=== PATIENT | male | born 1955 | race Caucasian/White ===

== ENCOUNTER 2017-01-12 18:08 | Observation (INO) | payer OTHER ==
[~2017-01-12] VITALS: Ht 172.7 cm; Wt 81.6 kg
[~2017-01-12 18:08] MED LIST: AMOX-CLAV 875-1 EACH PO; CYMBALTA30 M1 PO; FOLIC ACID1 M1 PO; GABAPENTIN300 M2 PO; HYSINGLA ER40 MG PO; K-TAB ER10 MEQ PO; MULTIVITAMINS1 EAC8 PO; NYSTATIN15 G1 TOP; OMEPRAZOLE40 M1 PO; ONE DAILY MULT1 EAC2 PO; OPANA ER40 M1 PO; OXYMORPHONE HCL40 MG PO; PERCOCET 10-321 EACH PO; PERCOCET 5-3251 EACH PO; PREDNISONE10 M2 PO; THIAMINE HCL50 M1 PO; VITAMIN B-1100 MG PO
--- NOTE | 2017-01-12 18:19 | ED CARDIAC/CP/PALPITATIONS ---
History of Present Illness General Chief Complaint: Chest Pain Stated Complaint: BIBA FOR CP, ABD PAIN Source: patient, old records, EMS Exam Limitations: no limitations Vital Signs & Intake/Output Vital Signs & Intake/Output Vital Signs Date Time Temp Pulse Resp B/P Pulse O2 O2 Flow FiO2 Ox Delivery Rate 01/13 0400 98.9 84 20 144/80 01/13 0028 99.0 74 20 147/80 93 Room Air 01/13 0000 99.0 74 20 148/80 01/12 2225 98.0 85 18 146/87 95 Room Air 01/12 2039 97.3 93 18 134/76 95 Room Air 01/12 1900 Room Air 01/12 1822 100 20 133/80 95 Room Air Allergies Coded Allergies: No Known Allergies (02/12/16) Reconcile Medications Duloxetine Hydrochloride (Cymbalta) 30 MG CAPSULE.DR 60 MG PO DAILY DEPRESSION Gabapentin (Neurontin) 800 MG TABLET 1 TAB PO TID NERVE PAIN (Reported) Ibuprofen (Advil) 200 MG CAPSULE 2 CAP PO DAILY PAIN (Reported) Oxycodone HCl 10 MG TABLET 1 TAB PO Q4-6H PAIN (Reported) Oxymorphone HCl (Oxymorphone HCl ER) 40 MG TAB.ER.12H 2 TAB PO BID PAIN ( Reported) Oxymorphone HCl (Opana) 10 MG TABLET 1 TAB PO Q4-6H PAIN (Reported) Triage Nurses Notes Reviewed? yes Onset: Abrupt Duration: day(s): (1), constant Timing: recent history Quality/Severity: moderate, severe, aching, pressure Location: central, epigastric Radiation: substernal, epigastric Activities at Onset: sleep Nitro Today/Relief: 0.4 mg x 3 (WITH RELIEF) Aspirin Today: 325 mg x 1, provided by EMS Associated Symptoms: nausea/vomiting HPI: 61 Year old male with history of etoh abuse, obesity, former tobacco use, hypertension, possible diabetes mellitus, possible left lower extremity deep venous thrombosis, chronic pain syndrome, alcoholism, anxiety, depression, left AKA presents to the emergency room for evaluation complaining of substernal chest pain radiating to the epigastric and right upper and left upper quadrant since 6:30 this morning came on while at sleep associated nausea and 3 episodes of vomiting. The patient denies diarrhea. The pain is otherwise nonradiating no back pain shortness of breath pain with inspiration no cough or hemoptysis. He should states that he drinks a quart of 5 Every day his last treatment was at 3 AM. He denies any fevers chills. Patient is in chronic pain secondary to back fractures and a left above-knee amputation for which she is on oxymorphone 40 mg. The patient was given 3 sublingual nitros in route with improvement in his pain from a 10 down to a 6 currently. He states he ran out of his pain medication at 6:00 this morning and is not due for refill again until Sunday. The patient is not regularly seen by field radio technician. (OSITO DAVISON) Past History Travel History Traveled to [place] past 21 day No Medical History Any Pertinent Medical History? 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 No (OSITO DAVISON) Review of Systems Review of Systems Constitutional: Reports: see HPI. All Other Systems: Reviewed and Negative Comments Review of systems: See HPI, All other systems negative. Constitutional, no chills no fever, no malaise no weight loss HEENT: No visual changes no sore throat no congestion, no ear pain Cardiovascular: chest pain , no palpitation , no orthopnea no ankle swelling Skin, no jaundice no rashes, no change in skin Respiratory: No dyspnea no cough no sputum no hemoptysis GI: nausea vomiting, no diarrhea, no bloating/constipation : No dysuria No hematuria Muscle skeletal: No joint pain, no back pain, no neck pain, Neurologic: No numbness no confusion, no headache Psych: No stress Heme/endocrine: No bruising no bleeding Immunology: No lymphadenopathy, (OSITO DAVISON) Physical Exam Physical Exam General Appearance: well developed/nourished, alert, awake Cardiovascular: regular rate/rhythm Comments: Well-developed well-nourished person in no acute distress HEENT: Normal EENT exam; PERRL, EOMI, HEAD is atraumatic. moist mucous membranes. Neck: Supple, normal range of motion Back: Nontender, no CVA tenderness. Full range of motion Cardiovascular: Regular rate and rhythms no murmurs rubs or gallops, normal JVP Respiratory: Chest nontender.There were no bony deformities, no asymmetry. No respiratory distress. Patient speaking in full complete sentences. Breath sounds clear to auscultation bilaterally: NO W/R/R Abdomen: Soft, nontender nondistended, no appreciable organomegaly. Normal bowel sounds. No rebound/guarding Extremity: No edema, full range of motion of extremities, Neuro: Alert oriented x3, motor sensory normal. There were no obvious focal neurologic abnormalities. Skin: No appreciable rash on exposed skin, skin is warm and dry. Psych: Mood and affect is normal, memory and judgment is normal. Core Measures ACS in differential dx? Yes ASA ordered for poss ACS? PT GIVEN EN ROUTE Severe Sepsis Present: No Septic Shock Present: No (BELEN LARA,OSITO) Progress Differential Diagnosis: AMI, aortic dissection, atrial fibrillation, CHF/pulm edema, costochondritis, hypovolemia, musculoskeletal pain, myocarditis, pancreatitis, pericarditis, pneumonia, pneumothorax, pulmonary embolism, unstable angina, V-fib/V-Tach Plan of Care: Orders Procedure Date/time Status Heart Healthy Diet 01/13 B Active TROPONIN LEVEL 01/13 0600 Active EKG 01/13 0600 Active Vital Signs 01/13 221 Active Teach/Educate 01/13 221 Active Pain Treatment and Response 01/13 221 Active Nutritional Intake, Monitor 01/13 221 Active Isolation 01/13 221 Active Intake & Output 01/13 221 Active Patient Care Conference 01/13 221 Active Activity/Ambulation 01/13 221 Active TROPONIN LEVEL 01/12 2355 Complete EKG 01/12 2355 Active Pathway - chart 01/12 2321 Active Pathway - chart 01/[address] in observation 01/12 2147 Active Misc Message 01/12 2147 Active ED Holding Orders 01/12 2147 Active Vital Signs 01/12 2147 Active Code Status 01/12 2147 Active Patient Data 01/12 2107 Active Intake & Output 01/12 1852 Active Add-on Test (ER Only) 01/12 183 Active URINE DRUG SCREEN FOR ER ONLY 01/12 183 Complete ETHANOL 01/12 1835 Complete Telemetry/Budget Accountant 01/12 1829 Active TROPONIN LEVEL 01/12 182 Complete PROTHROMBIN TIME 01/12 182 Complete LIPASE 01/12 182 Complete COMPREHENSIVE METABOLIC PANEL 01/12 1829 Complete CBC WITHOUT DIFFERENTIAL 01/12 1829 Complete AMYLASE 01/12 1829 Complete EKG 01/12 1811 Active House Staff 01/12 UNK Active VTE Mechanical Prophylaxis 01/12 UNK Active CIWA 01/12 UNK Active Current Medications Sig/Kyle Start time Last Medication Dose Stop Time Status Admin Duloxetine HCl 60 MG DAILY 01/13 1000 AC (Cymbalta) Enoxaparin Sodium 40 MG DAILY 01/13 1000 UNVr (Lovenox) Folic Acid 1 MG DAILY 01/13 1000 AC (Folic Acid) 01/15 1001 Multivitamins 1 TAB DAILY 01/13 1000 AC (Theragran Vitamins) Lorazepam 1 MG Q2P PRN 01/12 2330 AC (Ativan) Non-Formulary 0 SEE ADMIN CRITERIA 01/12 233 CAN Medication (NON FORMULARY) Non-Formulary 0 SEE ADMIN CRITERIA 01/12 2330 CAN Medication (NON FORMULARY) Oxycodone HCl 10 MG Q4-6 PRN 01/12 2315 AC (Roxicodone) Laboratory Tests 01/12/17 2352: Troponin I < 0.01 01/12/17 2030: Urine Opiates Screen > 4000.00 H, Methadone Screen 55, Barbiturate Screen < 60, Ur Phencyclidine Scrn < 6.00, Amphetamines Screen < 100, U Benzodiazepines Scrn < 85, Urine Cocaine Screen < 50, Urine Cannabis Screen < 5.00 01/12/17 183: Anion Gap 8, Estimated GFR > 60, BUN/Creatinine Ratio 11.4, Glucose 94, Calcium 8.7, Total Bilirubin 0.9, AST 16 L, ALT 28, Alkaline Phosphatase 84, Troponin I < 0.01, Total Protein 6.3, Albumin 3.5, Globulin 2.8, Albumin/Globulin Ratio 1.3 , Amylase < 30 L, Lipase 27, PT 12.2, INR 1.16, CBC w Diff NO MAN DIFF REQ, RBC 3.36 L, MCV 97.9 H, MCH 32.7 H, RDW 15.5 H, MPV 8.3, Gran % 70.8, Lymphocytes % 19.3 L, Monocytes % 6.5, Eosinophils % 3.1, Basophils % 0.3, Absolute Granulocytes 3.8, Absolute Lymphocytes 1.0 L, Absolute Monocytes 0.3, Absolute Eosinophils 0.2, Absolute Basophils 0, PUBS MCHC 33.4, Serum Alcohol < 10.0 Labs ordered old records reviewed patient medicated Dilaudid 1 mg IV IV fluids. Patient denies nausea chest x-ray CAT scan ordered case discussed with Dr. Earl 01/12/2017 7:59:25 PM discussed with the patient at length all of his lab results today pending CAT scan 01/12/2017 9:26:45 PM discussed the patient is CAT scan findings remainder of lab work given history premature discharge I believe would BE medically harmful patient, pain improved at this time Case discussed with Dr. Lopez will place in telemetry OBS CHEST pain (BELEN LARA,OSITO) Diagnostic Imaging: Viewed by Me: Radiology Read, CT Scan. Discussed w/RAD: Radiology Read, CT Scan. Radiology Impression: PATIENT: SOLEDAD WEBER PRESENT AGE: 11 PATIENT ACCOUNT NO: [id number] : [birth year] LOCATION: [facility] ORDERING PHYSICIAN: OSITO LARA SERVICE DATE: 01/12/17 EXAM TYPE: RAD - XRY-WRIST COMPLETE-RIGHT EXAMINATION: WRIST 4 VIEWS, RIGHT CLINICAL INFORMATION: Right wrist pain. COMPARISON: None. TECHNIQUE: AP, lateral, oblique , scaphoid views of the right wrist are provided. FINDINGS: There are no fractures or dislocations. There is no displacement of the pronator fat pad. The proximal carpal row is intact. IMPRESSION: Unremarkable right wrist radiographs. DICTATED BY: LIZZY OQUENDO MD DATE/TIME DICTATED:01/12/171907 PERMIT SPECIALIST:JUSTYN DATE/TIME TRANSCRIBED:01/12/171907 CONFIDENTIAL, DO NOT COPY WITHOUT APPROPRIATE AUTHORIZATION. <Electronically signed in Other Vendor System> SIGNED BY: LIZZY OQUENDO MD 01/12/171910, PATIENT: ALPA STALEY PRESENT AGE: 61 PATIENT ACCOUNT NO: [id number] : 54 LOCATION: ER ORDERING PHYSICIAN: OSITO LARA SERVICE DATE : 01/12/17 EXAM TYPE: CAT - CT ABD & PELVIS W IV CONTRAST EXAMINATION: CT ABDOMEN AND PELVIS WITH CONTRAST CLINICAL INFORMATION: Epigastric pain. COMPARISON: None. TECHNIQUE: Contiguous axial thin section helical images of the abdomen and pelvis were performed following the administration of 93 mL of intravenous Optiray 320. The data set was reformatted in the coronal and sagittal planes and reviewed on an independent workstation. DLP: 317 mGy-cm. FINDINGS: There is dependent bibasilar atelectasis. The visualized lung bases are otherwise clear. The visualized portions of the heart are unremarkable. The liver is of normal size and attenuation without concerning focal lesions. There is an 8 mm cyst within the inferior right lobe. There is mild intrahepatic biliary ductal dilation. The patient is status post cholecystectomy. The common duct is prominent measuring approximately 11 mm. The spleen, pancreas, adrenal glands are unremarkable. Both kidneys are of normal size and attenuation without hydronephrosis or nephrolithiasis. Following the administration of IV contrast, prompt symmetric nephrograms are displayed. There is no abdominal free fluid. There is neither mesenteric nor retroperitoneal lymphadenopathy. Normal unopacified loops of small and large bowel are identified. A normal appendix is identified. There is no pelvic free fluid. The urinary bladder is partially filled. There is mild diffuse bladder wall thickening. There is neither pelvic nor inguinal lymphadenopathy. Bone windows: Neither sclerotic nor lytic bone lesions are identified. IMPRESSION: Mild diffuse bladder wall thickening. This could be secondary to only partial filling of the urinary bladder, but correlate with physical exam, patient history and urinalysis if deemed clinically appropriate. Mild intrahepatic biliary ductal dilation status post cholecystectomy. DICTATED BY: LIZZY OQUENDO MD DATE/TIME DICTATED:01/12/171949 PERMIT SPECIALIST:JUSTYN DATE/TIME TRANSCRIBED:01/12/171949 CONFIDENTIAL, DO NOT COPY WITHOUT APPROPRIATE AUTHORIZATION. <Electronically signed in Other Vendor System> SIGNED BY: LIZZY OQUENDO MD 01/12/172001 Initial ED EKG: normal intervals, normal p-waves, normal QRS complex, normal sinus rhythm (70), nonspecific ST T wave chg Prior EKG: unchanged (2015) Rhythm Strip: normal sinus rhythm (BELEN LARA,OSITO) Departure Departure Time of Disposition: 2032 Disposition: STILL A PATIENT Condition: Stable Clinical Impression Primary Impression: Chest pain Referrals: CEE MOTT MD (PCP/Family) Departure Forms: Customer Survey General Discharge Information Observation Note Spoke With: CHANCE MARTINS,LEYDA Cerna Patient In: Non-ED OBS Care Area Rationale for Observation: My rational for observation is as follows pain improved with nitroglycerin aspirin patient has multiple cardiac risk factors premature discharge would BE medically harmful poor outpatient compliance (OSITO DAVISON) PA/CONCRETE CRAFTSMAN Co-Sign Statement Statement: ED Attending supervision documentation- [X] I saw and evaluated the patient. I have also reviewed all the pertinent lab results and diagnostic results. I agree with the findings and the plan of care as documented in the PA's/CONCRETE CRAFTSMAN's documentation. [] I have reviewed the ED Record and agree with the PA's/CONCRETE CRAFTSMAN's documentation. [] Additions or exceptions (if any) to the PAs/CONCRETE CRAFTSMAN's note and plan are summarized below: [] (PUNEET MARTINS,BRITTNEY Frost) Critical Care Note Critical Care Note Critical Care Time: non-applicable (OSITO DAVISON)
--- NOTE | 2017-01-12 18:20 | NUR ---
BIBA FOR INTERMITTENT CHEST PAIN SINCE THIS MORNING. WAS GIVEN 3 NTG BY EMS WITH RELIEF. UPON ARRIVAL PT STATES HE HAS RECURRENT CHEST PAIN 6 OUT OF 10. PT AWAKE, ALERT, ANXIOUS. PT ADMITS TO NARCOTIC DEPENDENCE. ARRIVED WITH 4 EMPTY BOTTLES OF OXYMORPHONE AND OXYCONE THAT WERE FILLED ABOUT 2 WEEKS AGO. PT STATES HE RAN OUT OF NARCOTICS AND TOOK LAST PILL AT 0630 TODAY. NOT DUE FOR REFILS UNTIL SUNDAY. SKIN WARM AND DRY.
--- NOTE | 2017-01-12 18:45 | NUR ---
PT RECIEVED TO ROOM 11. SEEN BY OSITO SORTO. ARRIVED WITH IV IN PLACE. PLACED ON MONITOR IN SINUS RHYTHM. EKG DONE. LABS DRAWN.
--- NOTE | 2017-01-12 18:51 | NUR ---
PT ON CELL PHONE
[2017-01-12 18:53] LABS: ABSOLUTE BASOPHIL COUNT 0 /CUMM (0.0-0.2); ABSOLUTE EOSINOPHIL COUNT 0.2 /CUMM (0.0-0.7); ABSOLUTE GRANULOCYTE CT 3.8 /CUMM (1.4-6.5); ABSOLUTE MONOCYTE COUNT 0.3 /CUMM (0.10-0.60); BASOPHIL % 0.3 % (0.0-2.0); EOSINOPHIL % 3.1 % (0-5); HEMATOCRIT 32.9 % (42-52); MEAN CORPUSCULAR HGB 32.7 PG (27.0-31.0); MEAN CORPUSCULAR HGB CONC 33.4 G/DL (33.0-37.0); MEAN CORPUSCULAR VOLUME 97.9 FL (80.0-94.0); MEAN PLATELET VOLUME 8.3 FL (7.4-10.4); PLATELET COUNT 238 /CUMM (130-400); RBC DISTRIBUTION WIDTH 15.5 % (11.5-14.5); RED BLOOD CELL CT 3.36 /CUMM (4.70-6.10); WHITE BLOOD CELL COUNT 5.3 /CUMM (4.8-10.8)
[2017-01-12 18:57] LABS: GRANULOCYTE % 70.8 % (42.2-75.2)
[2017-01-12 18:59] LABS: PT 12.2 SEC (9.4-12.5)
[2017-01-12] MEDS ORDERED: NEURONTIN300 M1 PO (19:00)
[2017-01-12] MEDS ORDERED: OPANA10 M1 PO (19:01)
[2017-01-12] MEDS ORDERED: OXYCODONE HCL10 M2 PO (19:01)
[2017-01-12] MEDS ORDERED: NEURONTIN800 M2 PO (19:02)
[2017-01-12] MEDS ORDERED: ADVIL200 M1 PO (19:03)
--- NOTE | 2017-01-12 19:08 | NUR ---
PT MEDICATED WITH DIALUDID PER ORDER AT THIS TIME.
--- NOTE | 2017-01-12 19:12 | RADIOLOGY REPORT ---
EXAMINATION: CHEST 1 VIEW CLINICAL INFORMATION: Chest pain. COMPARISON: 06/21/2016. TECHNIQUE: An AP view of the chest is provided. FINDINGS: The cardiac silhouette is not enlarged. The mediastinal and hilar contours are unremarkable. There are neither pleural effusions nor pneumothoraces. There are no consolidations. The osseous structures are unremarkable. IMPRESSION: No evidence for acute disease.
--- NOTE | 2017-01-12 19:30 | NUR ---
PT OPENLY DISCUSSING NARCOTIC DEPENDENCE/ADDICTION. STATES HE BOUGHT HEROIN TO USE FOR WHEN HE RUNS OUT OF MEDS BUT HAS NOT USED ANY TODAY. PT STATES HIS PAIN IS IMPROVED, ALMOST GONE AFTER DILAUDID
--- NOTE | 2017-01-12 20:02 | CT SCAN REPORT ---
EXAMINATION: CT ABDOMEN AND PELVIS WITH CONTRAST CLINICAL INFORMATION: Epigastric pain. COMPARISON: None. TECHNIQUE: Contiguous axial thin section helical images of the abdomen and pelvis were performed following the administration of 93 mL of intravenous Optiray 320. The data set was reformatted in the coronal and sagittal planes and reviewed on an independent workstation. DLP: 317 mGy-cm. FINDINGS: There is dependent bibasilar atelectasis. The visualized lung bases are otherwise clear. The visualized portions of the heart are unremarkable. The liver is of normal size and attenuation without concerning focal lesions. There is an 8 mm cyst within the inferior right lobe. There is mild intrahepatic biliary ductal dilation. The patient is status post cholecystectomy. The common duct is prominent measuring approximately 11 mm. The spleen, pancreas, adrenal glands are unremarkable. Both kidneys are of normal size and attenuation without hydronephrosis or nephrolithiasis. Following the administration of IV contrast, prompt symmetric nephrograms are displayed. There is no abdominal free fluid. There is neither mesenteric nor retroperitoneal lymphadenopathy. Normal unopacified loops of small and large bowel are identified. A normal appendix is identified. There is no pelvic free fluid. The urinary bladder is partially filled. There is mild diffuse bladder wall thickening. There is neither pelvic nor inguinal lymphadenopathy. Bone windows: Neither sclerotic nor lytic bone lesions are identified. IMPRESSION: Mild diffuse bladder wall thickening. This could be secondary to only partial filling of the urinary bladder, but correlate with physical exam, patient history and urinalysis if deemed clinically appropriate. Mild intrahepatic biliary ductal dilation status post cholecystectomy.
--- NOTE | 2017-01-12 20:17 | NUR ---
PT SLEEPING. IN NO OVERT DISTRESS
--- NOTE | 2017-01-12 20:39 | NUR ---
PT AWAKE, COMPLAINING OF LEFT THIGH GROIN PAIN. NOT SURE OF ONSET BUT STATES HE THINKS IT STARTED TODAY AND IT IS "SEVERE". PT VOIDED IN URINAL. URINE TRIO SENT
--- NOTE | 2017-01-12 22:02 | History & Physical ---
CAMPOS MARTINS,[facility] 01/12/17 2202: General Information and HPI MD Statement: I have seen and personally examined ALPA STALEY and documented this H&P. The patient is a 61 year old M who presented with a patient stated chief complaint of [chest pain, epigastric and LUQ pain]. 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 Patient reports that the pain was at first substernal pressure-like and radiating to the arms and shoulders as well as the epigastric area and right upper quadrant. Pain was 10 out of 10 and was alleviated after taking oxymorphone. Patient also took sublingual nitroglycerin which is slightly helped with the pain as well. Reports accompanying palpitations, shortness of breath and dizziness with the chest pain. Also reports cold sweats and chills. He vomited 4-5 times which contained food at the beginning and medications contained bile in the last vomit. Patient denied pain radiating to the back , currently reports no chest pain, reports abdominal pain in the epigastric and right upper quadrant, no diarrhea but reports loose stools, non bloody. patient takes a quart of alcohol daily, last time took it at 2AM. Denies any history of seizures with alcohol withdrawal. He was last admitted to [facility] on 06/21/16 and was on telemetry for chest pain and was also treated for alcohol withdrawal at that time. Patient has a chronic pain in left knee (despite AKA). Patient reports that 40 years ago he had an infection in the meniscus of left knee needing knee replacement which got complicated several times and finally resulted in amputation. He still feels pain in the left leg, also has chronic pain on hips and shoulders and takes oxycontin and oxymorphone. 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 child Services at Home: None ETOH Use: heavy use, alcoholic, a quort of alcohol daily Illicit Drug Use: denies illicit drug use Functional Ability ADLs Independent: dressing, eating, toileting, bathing. Ambulation: Wheelchair and crutches Review of Systems Review of Systems Constitutional: Reports: chills. Denies: fever, weakness. EENTM: Denies: visual changes. Cardiovascular: Reports: chest pain, palpitations. Denies: peripheral edema, syncope (currently no CP or palpitation). Respiratory: Reports: short of breath (currently no SOB). Denies: cough, stridor, wheezing. GI: Reports: abdominal pain, diarrhea, nausea, changes in stool, vomiting. Denies: bloating, constipation, distention, melena, bloody stool, steatorrhea. Genitourinary: Reports: nocturia (1-2 times/night, no increase). Denies: discharge. Musculoskeletal: Reports: joint pain. Denies: back pain. Skin: Reports: no symptoms. Neurological/Psychological: Reports: no symptoms. Hematologic/Endocrine: Reports: no symptoms. Exam & Diagnostic Data Last 24 Hrs of Vital Signs/I&O Vital Signs Date Time Temp Pulse Resp B/P Pulse O2 O2 Flow FiO2 Ox Delivery Rate 01/13 0028 99.0 74 20 147/80 93 Room Air 01/13 0000 99.0 74 20 148/80 01/125 98.0 85 18 146/87 95 Room Air 01/12 2039 97.3 93 18 134/76 95 Room Air 01/12 1900 Room Air 01/12 1822 100 20 133/80 95 Room Air Physical Exam General Appearance Alert, Oriented X3, Cooperative, No Acute Distress Skin No Significant Lesion HEENT Atraumatic, EOMI, Mucous Membr. moist/pink Neck Supple, No JVD Cardiovascular Regular Rate, Normal S1, Normal S2, No Murmurs Lungs Clear to Auscultation, Normal Air Movement Abdomen Soft, Generalized tenderness more prominent in the epigastric area and below the ribs, morphy sign (-), no abdominal bruit Neurological Normal Speech, Normal Tone, Cranial Nerves 3-12 NL Extremities No Edema, Normal Pulses, AKA on left side Vascular Normal Pulses Last 24 Hrs of Labs/Yuan: Laboratory Tests 01/12/17 2352: Troponin I < 0.01 01/12/17 2030: Urine Opiates Screen > 4000.00 H, Methadone Screen 55, Barbiturate Screen < 60, Ur Phencyclidine Scrn < 6.00, Amphetamines Screen < 100, U Benzodiazepines Scrn < 85, Urine Cocaine Screen < 50, Urine Cannabis Screen < 5.00 01/12/17 1835: Anion Gap 8, Estimated GFR > 60, BUN/Creatinine Ratio 11.4, Glucose 94, Calcium 8.7, Total Bilirubin 0.9, AST 16 L, ALT 28, Alkaline Phosphatase 84, Troponin I < 0.01, Total Protein 6.3, Albumin 3.5, Globulin 2.8, Albumin/Globulin Ratio 1.3 , Amylase < 30 L, Lipase 27, PT 12.2, INR 1.16, CBC w Diff NO MAN DIFF REQ, RBC 3.36 L, MCV 97.9 H, MCH 32.7 H, RDW 15.5 H, MPV 8.3, Gran % 70.8, Lymphocytes % 19.3 L, Monocytes % 6.5, Eosinophils % 3.1, Basophils % 0.3, Absolute Granulocytes 3.8, Absolute Lymphocytes 1.0 L, Absolute Monocytes 0.3, Absolute Eosinophils 0.2, Absolute Basophils 0, PUBS MCHC 33.4, Serum Alcohol < 10.0 Assessment/Plan Assessment: Patient is a 61-year-old gentleman with past medical history of osteoarthritis and chronic pain syndrome, AKA of the left knee, alcoholism, history of alcohol withdrawal, anxiety and depression who came to the ED with an episode of substernal pressure-like chest pain that radiated at first to the shoulders but later on to the epigastric and RUQ. Patient was last admitted at [facility] in June 2016 with chest pain and alcohol withdrawal. Workup in the ED revealed negative troponin and EKG with no ST or T changes and no arrhythmias. He will be abserved on Telemetry floor for minitoring. Problem list and plan: Chest pain, abdominal pain Pain alleviated with oxymorphone, slightly improved with nitroglycerin. Troponin EKG unremarkable. There is no elevated liver enzymes. Amylase and lipase within normal limits. * Serial troponin EKG * Vital signs every shift * Cardiology consulted, Dr. Lopez will see the patient in a.m. Alcoholism Patient has a history of alcohol withdrawal, no history of seizures with withdrawal. * [facility] protocol * Ativan per [facility] Chronic pain syndrome, osteoarthritis On gabapentin, OxyContin and oxymorphone at home Urine toxicology shows elevated opiates * Continue gabapentin 100 mg 3 times a day * Hydromorphone 1 mg every 4 when necessary by mouth * Continue home medications for vitamin B-1, folic acid and multivitamins Anxiety and depression * Continue Cymbalta 60 g daily Diet * Heart healthy DVT prophylaxis * Lovenox Full code As Ranked By This Provider Problem List: 1. Chest pain 2. Anxiety 3. Depression 4. Alcoholism /alcohol abuse Core Measures/Miscellaneous Acute Coronary Syndrome ACS Diagnosis: No Cerebrovascular Accident CVA/TIA Diagnosis: No Congestive Heart Failure CHF Diagnosis: No Venous Thromboembolism VTE Risk Factors: Acute medical illness, Age > 40 No [facility] VTE prophylaxis d/t: No contraindications No VTE Pharm Prophylaxis d/t: No contraindications VTE Diagnosis: No VTE Type: NONE VTE Confirmed by (Test): NONE Severe Sepsis Severe Sepsis Present: No Septic Shock Septic Shock Present: No Miscellaneous Documentation Attending Case Discussed With: CHANCE MARTINS,LEYDA Hooper Primary Care Physician: CEE MOTT MD Patient sees these Specialists none Level of Patient Care: Telemetry OSITO ANDERSON 01/12/17 2212: Resident Review Statement Resident Statement: examined this patient, discussed with intern product marketing manager, agreed with intern product marketing manager Other Findings: This is a 61-year-old male with past medical history of hypertension, chronic pain, chronic alcoholism, left [id number] amputation and questionable diabetes who presented to the [facility] ED complaining of chest pain. The patient's chest pain began today morning at approximately 6.00 am. It's an aching chest pain associated with pressure-like feeling 10 out of 10 predominantly constant he does not know any aggravating factors but reports that she gets relief with use of his pain medications which he ran out and cannot refill till Tank. Pain is located in the center of the chest yesterday above the epigastric area extending to the liver. The pain is nonradiating, he reports diaphoresis, nausea and vomiting associated with the chest pain. He vomited his lunch today consisting mostly of eaten foods and no blood. Patient reports heavy alcohol consumption about 32 ounces a day his last drink was yesterday 2 AM. He has been admitted several times for alcohol withdrawal but denies any alcohol withdrawal seizures. Vitals on arrival of November 97.3 tachycardic in the 100s respiration of 20 blood pressure 133/80, 95% on room air Physical examination: Not in acute distress seated on the bed patient appears not to be in pain or leg and oriented to time place and S1 very cooperative. HEENT: White mucous membrane, pink, no distended neck vessels CVS: Regular rate and rhythm, no murmurs, S1 and S2 normal RS: Clear lungs bilaterally Abdomen: Normal contour moving with respiration no palpable mass negative Fair 's sign Extremeties: Left lower limb [id number] amputation, no edema cyanosis or clubbing on the right lower Labs: Mild anemia H&H 11.0 and 32.9, normal electrolytes, no leukocytosis, blood alcohol level 10, urine toxicology positive for opiates and negative for cocaine and other agents EKG sinus tachycardia 100 bpm regular normal axis no ST-T wave changes QTC of 460 Assessment and plan Problem list Chest pain Alcohol dependence Chronic pain Admit patient to telemetry floor 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 60 MG PO DAILY DEPRESSION Folic Acid 1 MG TABLET 1 TAB PO DAILY FOLIC ACID Gabapentin (Neurontin) 800 MG TABLET 1 TAB PO TID NERVE PAIN (Reported) Ibuprofen (Advil) 200 MG CAPSULE 2 CAP PO DAILY PAIN (Reported) Multivitamin (One Daily Multivitamin) 1 EACH TABLET 1 TAB PO DAILY MULTIVITAMIN Omeprazole 20 MG CAPSULE.DR 1 TAB PO DAILY AC ACID REFLUX Oxycodone HCl 10 MG TABLET 1 TAB PO Q4-6H PAIN (Reported) Oxymorphone HCl (Oxymorphone HCl ER) 40 MG TAB.ER.12H 2 TAB PO BID PAIN ( Reported) Oxymorphone HCl (Opana) 10 MG TABLET 1 TAB PO Q4-6H PAIN (Reported) Thiamine HCl (Vitamin B-1) 100 MG TABLET 1 MG PO DAILY MULTIVITAMINS Attending MD Review Statement Attending Statement Attending MD Statement: examined this patient, discuss w/resident/PA/SAND SIFTER, reviewed images Attending Assessment/Plan: The patient is a 61-year-old man with chronic alcoholism and chronic narcotic use for chronic pain. The patient presented with chest pain of about 24 hours duration. This is described as right-sided anterior chest pain radiating around to the back and to the axilla. This is nonexertional and is somewhat responsive to motion. The pain is been somewhat chronic. The patient was to have been discharged from the emergency department but the pain became a little more severe and he was admitted. He also admits to significant alcohol use and was admitted for alcohol withdrawal. He had a previous admission in 2016 for acute intoxication and withdrawal. The patient denied to me any history of heart disease or hypertension and is not taking any cardiac medication at this time. On examination his lungs are clear and his cardiac examination is normal. His EKGs are normal. He has 3 sets of negative troponins. The patient can be removed from telemetry and transferred to general medicine floor. He should be watched for alcohol withdrawal and then discharged when clinically stable from that standpoint. He is cleared from a cardiac standpoint at this time.
--- NOTE | 2017-01-12 22:24 | NUR ---
PT WITH OLD LEFT AKA. STATES AT BASELINE HE CAN TAKE A FEW STEPS USING WALKER. DOES NOT HAVE PROSTHESIS AND IS MAINLY STAND PIVOT TO WHEELCHAIR
--- NOTE | 2017-01-12 22:24 | NUR ---
PT HAS BEEN SLEEPING IN INTERVALS SINCE GETTING DILAUDID. PRE HOSPITAL IV REMOVED AND NEW LINE PLACED. PT FALLING ASLEEP DURING PROCEDURE BUT EASILY AROUSABLE. CURRENTLY USING URINAL. PT REMINDED NOT TO GET UP WITHOUT ASSIST
--- NOTE | 2017-01-12 22:53 | NUR ---
BED ASSIGNMENT [id number]
--- NOTE | 2017-01-12 23:31 | NUR ---
REPORT GIVEN TO ELSIE
--- NOTE | 2017-01-12 23:56 | NUR ---
REPEAT TROPONIN DRAWN AND SENT TO LAB BY THIS MST. EKG DONE.
[2017-01-13] VITALS (7 sets, daily range): BP systolic 124–150; BP diastolic 78–95
--- NOTE | 2017-01-13 09:47 | PN- Housestaff ---
Subjective Follow-up For: Chest pain. Nausea/vomiting. Tele-Events Since Last Visit: Sinus rhythm with occasional PVC. Subjective: 61-year-old gentleman here with chest pain. Admits to heavy alcohol use, associated with frequent episodes of vomiting. No vomiting while inpatient. Continues to have epigastric pain and tenderness over his abdomen. No fever/ chills. Admits to having seen dark blood in stool recently. 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 Does not recall getting endoscopy, colonoscopy more than 10 years ago. No constipation or diarrhea. No shortness of breath or palpitations. Other systems reviewed and negative, exceptions above. Review of Systems Constitutional: Reports: see HPI. Objective Last 24 Hrs of Vital Signs/I&O Vital Signs Date Time Temp Pulse Resp B/P Pulse O2 O2 Flow FiO2 Ox Delivery Rate 01/13 0900 98.1 81 20 150/80 98 Room Air 01/13 0400 98.9 84 20 144/80 01/13 0028 99.0 74 20 147/80 93 Room Air 01/13 0000 99.0 74 20 148/80 01/12 2225 98.0 85 18 146/87 95 Room Air 01/12 2039 97.3 93 18 134/76 95 Room Air 01/12 1900 Room Air 01/12 1822 100 20 133/80 95 Room Air Intake & Output 01/13 1600 01/13 0800 01/13 0000 Intake Total 240 Output Total 1050 Balance -810 Intake, Oral 240 Output, Urine 1050 Patient 180 lb Weight Physical Exam General Appearance: Alert, Oriented X3, Cooperative Cardiovascular: Regular Rate, Normal S1, Normal S2 Lungs: Clear to Auscultation, Normal Air Movement Abdomen: Normal Bowel Sounds, Diffuse tenderness to touch. Epigastric pain on deep palpation. Neurological: Normal Speech Current Medications: Current Medications Sig/Kyle Start time Last Medication Dose Route Stop Time Status Admin Aspirin 81 MG ONCE ONE 01/12 184 DC PO 01/12 184 Duloxetine HCl 60 MG DAILY 01/13 1000 AC 01/13 PO 1002 Enoxaparin Sodium 40 MG DAILY 01/13 1000 AC 01/13 SC 1004 Folic Acid 1 MG DAILY 01/13 1000 AC 01/13 PO 01/15 1001 1003 Gabapentin 800 MG TID 01/13 0030 AC 01/13 PO 1003 Hydromorphone HCl 1 MG Q4P PRN 01/13 0045 AC 01/13 PO 1002 Hydromorphone HCl 0 .STK-MED ONE 01/12 190 DC .ROUTE Hydromorphone HCl 1 MG ONCE ONE 01/12 1845 DC 01/12 IV 01/12 184 1908 Lorazepam 2 MG Q6 01/12 2359 DC 01/13 PO 01/13 0001 0206 Lorazepam 1 MG Q2P PRN 01/12 2330 AC PO Multivitamins 1 TAB DAILY 01/13 1000 AC 01/13 PO 1003 Non-Formulary 0 SEE ADMIN CRITERIA 01/12 233 CAN Medication ANY Non-Formulary 0 SEE ADMIN CRITERIA 01/12 233 CAN Medication ANY Oxycodone HCl 40 MG Q12 01/13 004 AC 01/13 PO 1007 Oxycodone HCl 10 MG Q4-6 PRN 01/12 2315 AC 01/13 PO 0746 Thiamine HCl 100 MG DAILY 01/12 2330 AC 01/13 PO 01/15 1001 0204 Last 24 Hrs of Lab/Yuan Results Last 24 Hrs of Labs/Mics: Laboratory Tests 01/13/17 0650: Magnesium 2.0, Troponin I < 0.01 01/12/17 2352: Troponin I < 0.01 01/12/17 2030: Urine Opiates Screen > 4000.00 H, Methadone Screen 55, Barbiturate Screen < 60, Ur Phencyclidine Scrn < 6.00, Amphetamines Screen < 100, U Benzodiazepines Scrn < 85, Urine Cocaine Screen < 50, Urine Cannabis Screen < 5.00 01/12/17 1835: Anion Gap 8, Estimated GFR > 60, BUN/Creatinine Ratio 11.4, Glucose 94, Hemoglobin A1c 4.7, Calcium 8.7, Total Bilirubin 0.9, AST 16 L, ALT 28, Alkaline Phosphatase 84, Troponin I < 0.01, Total Protein 6.3, Albumin 3.5, Globulin 2.8, Albumin/Globulin Ratio 1.3, Amylase < 30 L, Lipase 27, PT 12.2, INR 1.16, CBC w Diff NO MAN DIFF REQ, RBC 3.36 L, MCV 97.9 H, MCH 32.7 H, RDW 15.5 H, MPV 8.3, Gran % 70.8, Lymphocytes % 19.3 L, Monocytes % 6.5, Eosinophils % 3.1, Basophils % 0.3, Absolute Granulocytes 3.8, Absolute Lymphocytes 1.0 L, Absolute Monocytes 0.3, Absolute Eosinophils 0.2, Absolute Basophils 0, PUBS MCHC 33.4, Serum Alcohol < 10.0 Assessment/Plan Assessment: 61-year-old gentleman with hypertension presents with epigastric chest pain, associated with episodes of diaphoresis, nausea and vomiting in the setting of heavy alcohol consumption. 1. Atypical chest pain: Sinus tachycardia on EKG, no ST-T changes, occasional PVC noted. Negative troponins. Need to evaluate other causes of epigastric pain, gastritis etc. in a patient with history of heavy alcohol consumption and vomiting. May benefit from a trial of acid suppression with oral PPI. Check magnesium. 2. Macrocytic anemia: Likely a result of heavy alcohol consumption. Check fecal occult blood to rule out any upper GI bleed as a result of alcohol consumption. *Patient admits to seeing blood in stool. Outpatient referral to gastroenterology for possible upper endoscopy and age-appropriate colonoscopy. 3. Alcohol dependence: Continue Ativan per CIWA. Folic acid, multivitamin and thiamine supplementation. Check magnesium. Supplemental as necessary. Low sodium noted, likely a result of alcohol use. Continue monitoring. 4. Continue pain medications. Lovenox for DVT prophylaxis. Problem List: 1. Alcohol withdrawal Pain Ratin Pain Location: Epigastrium Pain Goal: Pain 7 or less Pain Plan: Oxycodone Tomorrow's Labs & Rationales: CBC/BEP. To monitor hemoglobin for possible acute blood loss anemia and to monitor sodium.
[2017-01-14] VITALS (8 sets, daily range): BP systolic 124–160; BP diastolic 70–104
[2017-01-14 08:20] LABS: ABSOLUTE BASOPHIL COUNT 0 /CUMM (0.0-0.2); ABSOLUTE EOSINOPHIL COUNT 0.1 /CUMM (0.0-0.7); ABSOLUTE GRANULOCYTE CT 2.1 /CUMM (1.4-6.5); ABSOLUTE LYMPH COUNT 1.1 /CUMM (1.2-3.4); ABSOLUTE MONOCYTE COUNT 0.3 /CUMM (0.10-0.60); BASOPHIL % 0.5 % (0.0-2.0); GRANULOCYTE % 57.7 % (42.2-75.2); MEAN CORPUSCULAR HGB 32.5 PG (27.0-31.0); MEAN CORPUSCULAR HGB CONC 33.6 G/DL (33.0-37.0); MEAN PLATELET VOLUME 8.8 FL (7.4-10.4); PLATELET COUNT 197 /CUMM (130-400); RBC DISTRIBUTION WIDTH 15.2 % (11.5-14.5); RED BLOOD CELL CT 3.98 /CUMM (4.70-6.10); WHITE BLOOD CELL COUNT 3.7 /CUMM (4.8-10.8)
[2017-01-14 09:07] LABS: HEMATOCRIT 38.6 % (42-52)
--- NOTE | 2017-01-14 10:12 | PN- Housestaff ---
[facility] 01/14/17 0959: Subjective Follow-up For: Chest pain. Nausea/vomiting. Complaints: no complaints Subjective: Patient seen and examined at bedside. Continues to have mild epigastric pain. Denies any fever, chills, diarrhea, constipation, blood in stools, nausea or vomiting. No shortness of breath, palpitations, chest pain, dizziness, headache. Review of Systems Constitutional: Reports: no symptoms. EENTM: Reports: no symptoms. Cardiovascular: Reports: no symptoms. Respiratory: Reports: no symptoms. Gastrointestinal: Reports: abdominal pain. Genitourinary: Reports: no symptoms. Musculoskeletal: Reports: no symptoms. Objective Last 24 Hrs of Vital Signs/I&O Vital Signs Date Time Temp Pulse Resp B/P Pulse O2 O2 Flow FiO2 Ox Delivery Rate 01/14 0600 98.8 80 20 126/80 01/14 0412 98.9 77 20 130/78 95 Room Air 01/14 0400 98.9 77 20 130/78 01/14 0229 90 124/92 93 Room Air 01/14 0200 98.8 90 20 124/92 01/14 0022 98.7 95 20 160/104 95 Room Air 01/14 0000 98.7 95 20 160/104 01/13 2003 98.9 73 20 124/78 98 Room Air 01/13 2000 98.9 73 20 124/78 04 1636 98.7 89 17 144/95 96 Room Air Intake & Output 01/14 1600 01/14 0800 01/14 0000 Intake Total 250 250 Output Total 500 400 Balance -250 -150 Intake, IV 10 10 Intake, Oral 240 240 Output, Urine 500 400 Physical Exam General Appearance: Alert, Oriented X3, Cooperative, No Acute Distress Skin: No Rashes, No Breakdown HEENT: Atraumatic, PERRLA, EOMI Neck: No JVD Lymphatic: Cervical nl Cardiovascular: Regular Rate, Normal S1, Normal S2 Lungs: Clear to Auscultation, Normal Air Movement Abdomen: Soft, tenderness in the epigastric area Neurological: Normal Speech, Strength at 5/5 X4 Ext, Normal Tone Extremities: No Clubbing, No Cyanosis, No Edema, LEFT LOWER LIMB ABOVE KNEE AMPUTATION Vascular: Pulses Symmetrical Current Medications: Current Medications Sig/Kyle Start time Last Medication Dose Route Stop Time Status Admin Duloxetine HCl 60 MG DAILY 01/13 1000 AC 01/14 PO 0934 Enoxaparin Sodium 40 MG DAILY 01/13 1000 AC 01/14 SC 0937 Folic Acid 1 MG DAILY 01/13 1000 AC 01/14 PO 01/15 1001 0935 Gabapentin 800 MG TID 01/13 0030 AC 01/14 PO 0934 Hydromorphone HCl 1 MG Q4P PRN 01/13 0045 AC 01/14 PO 0607 Lorazepam 1 MG Q2P PRN 01/12 2330 AC 01/14 PO 0935 Multivitamins 1 TAB DAILY 01/13 1000 AC 01/14 PO 0934 Omeprazole 40 MG DAILY AC 01/13 1124 AC 01/14 PO 0518 Oxycodone HCl 10 MG .STK-MED ONE 01/13 1859 DC PO 01/13 1900 Oxycodone HCl 40 MG Q12 01/13 0045 AC 01/14 PO 0936 Oxycodone HCl 10 MG Q4-6 PRN 01/12 2315 AC 01/14 PO 0935 Thiamine HCl 100 MG DAILY 01/12 2330 AC 01/14 PO 01/15 1001 0934 Last 24 Hrs of Lab/Yuan Results Last 24 Hrs of Labs/Mics: Laboratory Tests 01/14/17 0630: Anion Gap 7, Estimated GFR > 60, BUN/Creatinine Ratio 10.0, CBC w Diff NO MAN DIFF REQ, RBC 3.98 L, MCV 97.0 H, MCH 32.5 H, RDW 15.2 H, MPV 8.8, Gran % 57.7, Lymphocytes % 29.9, Monocytes % 8.9, Eosinophils % 3.0, Basophils % 0.5, Absolute Granulocytes 2.1, Absolute Lymphocytes 1.1 L, Absolute Monocytes 0.3, Absolute Eosinophils 0.1, Absolute Basophils 0, PUBS MCHC 33.6 Assessment/Plan Assessment: 61-year-old gentleman with hypertension presents with epigastric chest pain, associated with episodes of diaphoresis, nausea and vomiting in the setting of heavy alcohol consumption. 1. Atypical chest pain: No chest pain at this time . -Sinus tachycardia on EKG, no ST-T changes, occasional PVC noted. -Negative troponins. -On PPI with improved chest pain. -Patient was initially on the telemetry floor, now transferred to [facility]. 2. Macrocytic anemia: Likely a result of heavy alcohol consumption. -Check fecal occult blood to rule out any upper GI bleed as a result of alcohol consumption. *Patient admits to seeing blood in stool. Outpatient referral to gastroenterology for possible upper endoscopy and age-appropriate colonoscopy. 3. Alcohol dependence:CIWA 0-8 overnight -Continue Ativan per CIWA. -Has required 2 mg when necessary Ativan overnight. Not on scheduled Ativan. -Continue Folic acid, multivitamin and thiamine supplementation. -Electrolytes within normal limits 4.Chronic pains all over the body -Continue Dilaudid, oxycodone, and gabapentin Lovenox for DVT prophylaxis. Heart healthy diet Full code Problem List: 1. Alcohol withdrawal 2. Chest pain 3. Alcoholism /alcohol abuse Pain Ratin Pain Location: Epigastric Pain Goal: Pain 4 or less Pain Plan: Oxycodone Tomorrow's Labs & Rationales: BEP for hyponatremia LINDSAY IZQUIERDO MD 01/14/17 1454: Attending MD Review Statement Attending Statement Attending MD Statement: examined this patient, discuss w/resident/PA/MARKET RESEARCH WORKER, agreed w/resident/PA/MARKET RESEARCH WORKER, reviewed EMR data (avail) Attending Assessment/Plan: 61M PMH chronic pain, EtOH abuse admitted for chest pain, ruled out for ACS and chest pain resolved, now patient asking for detox. Patient takes several pain meds per day for diffuse pain, including long acting hydromorphine, short acting hydromorphine, and Percocet. Per CTPMP, patient received 480 pills of Hydromorphone on 12/25 and 12/27. He reports that he does not have any more at home, and he is in severe pain all over his body, despite being given Dilaudid IV during this admission. He is asking for detox from opioids and alcohol. He has received Ativan as his CIWA scores have been elevated. Exam and labs are normal. Plan - Patient is medically stable for discharge, and can be given an outpatient detox referral if he wishes. However if condition deteriorates he may have to be kept as inpatient for further management of withdrawal. He is not experiencing alcohol withdrawal symptoms or signs at this time - Continue remaining home medications - Follow cardiology recommendations - DVT PPx
--- NOTE | 2017-01-14 10:27 | PN- Housestaff ---
Assessment/Plan Discharge Plan Discharge Disposition: home 1. Atypical chest pain: No chest pain at this time . -Sinus tachycardia on EKG, no ST-T changes, occasional PVC noted. -Negative troponins. -On PPI with improved chest pain. -Patient was initially on the telemetry floor, now transferred to [facility]. 2. Macrocytic anemia: Likely a result of heavy alcohol consumption. -Check fecal occult blood to rule out any upper GI bleed as a result of alcohol consumption. *Patient admits to seeing blood in stool. Outpatient referral to gastroenterology for possible upper endoscopy and age-appropriate colonoscopy. 3. Alcohol dependence:CIWA 0-8 overnight -Continue Ativan per CIWA. -Has required 2 mg when necessary Ativan overnight. Not on scheduled Ativan. -Continue Folic acid, multivitamin and thiamine supplementation. -Electrolytes within normal limits 4. Continue pain medications. -Continue Dilaudid, oxycodone, and gabapentin Lovenox for DVT prophylaxis. Heart healthy diet Full code
[2017-01-14] MEDS ORDERED: ONE DAILY MULT1 EAC2 PO (11:20)
[2017-01-14] MEDS ORDERED: OMEPRAZOLE20 M2 PO (11:20)
[2017-01-14] MEDS ORDERED: FOLIC ACID1 M1 PO (11:20)
[2017-01-14] MEDS ORDERED: VITAMIN B-1100 MG PO (11:20)
--- NOTE | 2017-01-14 11:23 | Patient Discharge Instructions ---
Discharge Instructions General Discharge Information You were seen/treated for: ATYPICAL CHEST PAIN Special Instructions: 1. PLEASE F/U WITH PCP WITHIN 1 WEEK OF DISCHARGE. 2.PLEASE CONTINUE MULTIVITAMIN , THIAMINE AND FOLATE. 3.PLEASE CALL [phone] FOR INTENSIVE OUTPATIENT DETOX PROGRAM AT . Diet Continue normal diet: Yes Recommended Diet: Heart Healthy Acute Coronary Syndrome Inclusion Criteria At DC or during hospital stay patient has or had the following: ACS DIAGNOSIS No Discharge Core Measures Meds if any: Prescribed or Continued at Discharge Meds if any: NOT Prescribed or Continued at Discharge Congestive Heart Failure Inclusion Criteria At DC or during hospital stay patient has or had the following: CHF DIAGNOSIS No Discharge Core Measures Meds if any: Prescribed or Continued at Discharge Meds if any: NOT Prescribed or Continued at Discharge Cerebrovascular accident Inclusion Criteria At DC or during hospital stay patient has or had the following: CVA/TIA Diagnosis No Discharge Core Measures Meds if any: Prescribed or Continued at Discharge Meds if any: NOT Prescribed or Continued at Discharge Venous thromboembolism Inclusion Criteria VTE Diagnosis No VTE Type NONE VTE Confirmed by (Test) NONE Discharge Core Measures - Per Current guidelines, there needs to be overlap - treatment for the first 5 days of Warfarin therapy. - If discharged on Warfarin prior to 5 days of - overlap therapy, the patient will need to be - assessed for post discharge needs including - *Post discharge parental anticoagulation - *Warfarin and/or parental anticoagulation education - *Follow up date to check INR post discharge At least 5 days overlap therapy as Inpatient No Meds if any: Prescribed or Continued at Discharge Note: Overlap Therapy is Warfarin and Anticoagulant Meds if any: NOT Prescribed or Continued at Discharge
--- NOTE | 2017-01-14 16:15 | NUR ---
PT WAS ON OBSERVATION FOR CHEST PAIN INITIALLY .CHEST PAIN CLEARED. 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 HE IS ON A ATIVAN CIWA. FAMILY WANTED TO SEE A DRIER OPERATOR AND HAVE HIM ADMITTED HERE FOR DETOX. UNABLE TO OFFER DETOX HERE. EVY INTERIOR DESIGN CONSULTANT SPOKE TO PT AND SISTER TO ARRANGE A OUTFITTER CABIN WEDDING PLANNER TO HELP FIND PLACE FOR PT. A LIST WAS GIVEN TO FAMILY AND I WAS TOLD THE FAMILY FOUND A PLACE, THAT THEY NEEDED TO LEAVE [facility]. BROUGHT PAPERWORK TO PT, REMOVED IV. THE PT'S SISTER WAS UPSET AND WAS ASKING WHILE PT WAS BEING DISCHARGED ABOUT A CHEST XRAY. I ASKED, "WHY WOULD PT NEED A CHEST XRAY." HE ISNT HAVING CHEST PAIN AND ALL OTHER TESTS WERE RULED OUT. FAMILY MEMBER STARTING TALKING LOUDLY AND YELLING. I ASKED, " DO YOU WANT THEM TO ORDER AN XRAY.I THOUGHT YOU WANTED TO LEAVE [place] NOW SO YOU CAN CLAIM THAT BED." SHE YELLED MORE AND SAID, " WE NEVER WANTED TO LEAVE, THE INTERIOR DESIGN CONSULTANT SAID WE HAD TO." I SAID WELL HERE IS A LIST OF THE PLACES THAT MAY BE ABLE TO HELP WITH OPIATE WITHDRAWL. SISTER BECAME VERY LOUD AND AGGRESSIVE, AT THIS POINT I SAID, "I DONT KNOW WHAT TO TELL YOU i AM TRYING HELP YOU. THE PATIENT KEPT TELLING HIS SISTER TO STOP. LETS JUST GO." AT THIS POINT I SAID, i AM NOT GOING TO BE YELLED AT I WILL GET A DOCTOR FOR YOU. DR DRUMMOND WENT TO BEDSIDE TO SPEAK TO FAMILY. FAMILY WAS STILL VERY UPSET. DR. DRUMMOND WAS AT BEDSIDE , SHE ALSO PROVIDED PT WITH A PO ATIVAN. EARLIER PT CLAIMED WE LOST CRUTCHES. EVY, FROM CASE MANAGEMENT GOT PT A WALKER. TELELMETRY AND ER WERE CALLED ABOUT CRUTCHES. EITHER DID NOT HAVE THEM AND THERE WAS NO NOTE WRITTEN ABOUT SUCH. PT WAS GIVEN ADEQUATE RESOURCES TO FIND ADEQUATE OPIATE DETOX.
== END 2017-01-14 15:00 ==
LOC: ENRESERVTM → ENRESERVDT → ERH 18:08 → ENPENDDIS 21:47 → ERHI 21:47 → 1NO 01-13 00:17 → 2NA 01-13 19:31
PROVIDERS: Internal Medicine Hematology & Oncology; Physician Assistant Medical; ADMIT Internal Medicine
DX: R07.9 Chest pain, unspecified (principal); D53.9 Nutritional anemia, unspecified; F10.20 Alcohol dependence, uncomplicated; I10 Essential (primary) hypertension; E66.9 Obesity, unspecified; Z87.891 Personal history of nicotine dependence; Z89.612 Acquired absence of left leg above knee; R10.9 Unspecified abdominal pain
CPT/HCPCS: 36415; 74177; 80307; 82436; 93005; 93010; 96372; 96374; G0378; G0480; J1650; J3490

== ENCOUNTER 2017-02-18 09:30 | Emergency (ER) | payer OTHER ==
[~2017-02-18] VITALS: Ht 170.2 cm; Wt 72.1 kg
[~2017-02-18 09:30] MED LIST changes: +ADVIL200 M1 PO; +NEURONTIN300 M1 PO; +NEURONTIN800 M2 PO; +OMEPRAZOLE20 M2 PO; +OPANA10 M1 PO; +OXYCODONE HCL10 M2 PO
[2017-02-18 10:46] LABS: ABSOLUTE BASOPHIL COUNT 0 /CUMM (0.0-0.2); ABSOLUTE EOSINOPHIL COUNT 0 /CUMM (0.0-0.7); ABSOLUTE GRANULOCYTE CT 5.8 /CUMM (1.4-6.5); ABSOLUTE LYMPH COUNT 0.5 /CUMM (1.2-3.4); ABSOLUTE MONOCYTE COUNT 0.7 /CUMM (0.10-0.60); BASOPHIL % 0.1 % (0.0-2.0); EOSINOPHIL % 0.2 % (0-5); GRANULOCYTE % 82.9 % (42.2-75.2); HEMATOCRIT 36.2 % (42-52); MEAN CORPUSCULAR HGB 30.4 PG (27.0-31.0); MEAN CORPUSCULAR HGB CONC 32.8 G/DL (33.0-37.0); MEAN CORPUSCULAR VOLUME 92.8 FL (80.0-94.0); MEAN PLATELET VOLUME 10.3 FL (7.4-10.4); PLATELET COUNT 167 /CUMM (130-400); RBC DISTRIBUTION WIDTH 13.4 % (11.5-14.5)
--- NOTE | 2017-02-18 13:31 | ED GENERAL ADULT ---
History of Present Illness General Chief Complaint: Abdominal Pain/Flank Pain Stated Complaint: BIBA FOR DRINKING [place] Source: patient, old records Exam Limitations: no limitations Vital Signs & Intake/Output Vital Signs & Intake/Output Vital Signs Date Time Temp Pulse Resp B/P B/P Pulse O2 O2 Flow FiO2 Mean Ox Delivery Rate 02/18 1620 97.6 75 16 118/60 98 Room Air 02/18 1320 97.7 83 16 116/63 97 Room Air 02/18 0949 97 02/18 0933 96.0 92 20 179/96 98 Room Air Allergies Coded Allergies: No Known Allergies (02/12/16) Reconcile Medications Duloxetine Hydrochloride (Cymbalta) 30 MG CAPSULE.DR 60 MG PO DAILY DEPRESSION Folic Acid 1 MG TABLET 1 TAB PO DAILY FOLIC ACID Gabapentin (Neurontin) 800 MG TABLET 1 TAB PO TID NERVE PAIN (Reported) Ibuprofen (Advil) 200 MG CAPSULE 2 CAP PO DAILY PAIN (Reported) Multivitamin (One Daily Multivitamin) 1 EACH TABLET 1 TAB PO DAILY MULTIVITAMIN Omeprazole 20 MG CAPSULE.DR 1 TAB PO DAILY AC ACID REFLUX Oxycodone HCl 10 MG TABLET 1 TAB PO Q4-6H PAIN (Reported) Oxymorphone HCl (Opana) 10 MG TABLET 1 TAB PO Q4-6H PAIN (Reported) Oxymorphone HCl (Oxymorphone HCl ER) 40 MG TAB.ER.12H 2 TAB PO BID PAIN ( Reported) Thiamine HCl (Vitamin B-1) 100 MG TABLET 1 MG PO DAILY MULTIVITAMINS Triage Note: PT BIBA FROM HOME AFTER DRINKING 750ML OF STOP AND SHOP PINSOL. PT STATES HE THOUGHT IT WAS HIS FILTERED BOTTLE WATER THAT WAS ON THE COUNTER. PT DENIES SI/HI AND STATES THIS WAS A TOTAL ACCIDENT. PT STATES HE CLEANED HIS SINK WITH THE PINESOL AND STATES HE THINKS HE DIDN'T NOTICE THE SMELL BECAUSE THE KITCHEN SMELLED LIKE THAT AFTER WIPING DOWN HIS SINK. PT STATES THIS HAPPEND AT 0730 THIS AM AND HE VOMITED X2 RIGHT AFTER INCIDENT. PT ALSO STATES HE MADE HIMSELF VOMIT TWICE AFTER THAT. PT ALSO STATES HE HAD A POPPY SEED MUFFIN THIS AM AND STATES HIS TOLD HIM HIS URINE WILL SHOW UP + FOR MARIJUANA. Triage Nurses Notes Reviewed? yes Onset: Just prior to arrival Duration: hour(s):, constant, continues in ED Timing: recent history Injury Environment: home Severity: moderate No Modifying Factors: none HPI: 1 day prior to admission he completed a 10 day rehabilitation for opiate dependence. Prior to admission patient accidentally drank [place] up to 750 ML's. He reports vomiting several times one hour later. He complains of abdominal cramping nausea. He denies fever chills chest pain cough shortness of breath headache dysuria rash bleeding suicidal ideation homicidal ideation hallucination Past History Travel History Traveled to [place] past 21 day No Medical History Any Pertinent Medical History? 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 No Review of Systems Review of Systems Constitutional: Reports: no symptoms. EENTM: Reports: no symptoms. Respiratory: Reports: no symptoms. Cardiovascular: Reports: no symptoms. GI: Reports: see HPI, abdominal pain, nausea, vomiting. Genitourinary: Reports: no symptoms. Musculoskeletal: Reports: no symptoms. Skin: Reports: no symptoms. Neurological/Psychological: Reports: no symptoms. Hematologic/Endocrine: Reports: no symptoms. Immunologic/Allergic: Reports: no symptoms. All Other Systems: Reviewed and Negative Physical Exam Physical Exam General Appearance: well developed/nourished, alert, awake, anxious, mild distress, obese Head: atraumatic, normal appearance Eyes: Bilateral: normal appearance, PERRL, EOMI. Ears, Nose, Throat: normal pharynx, normal ENT inspection Neck: normal inspection, supple, full range of motion, no midline tenderness Respiratory: normal breath sounds, chest non-tender, no respiratory distress, quiet respiration, lungs clear Cardiovascular: regular rate/rhythm, normal peripheral pulses, norml femoral pulses equa Peripheral Pulses: 4+ carotid (R), 4+ carotid (L) Gastrointestinal: normal bowel sounds, soft, non-tender, no organomegaly Back: normal inspection, normal range of motion Extremities: normal capillary refill, normal range of motion, left above-knee amputation Neurologic/Psych: no motor/sensory deficits, awake, alert, oriented x 3, normal mood/affect, agronomy advisor II-XII nml as tested Reflexes: 2+: bicep (R), bicep (L). Skin: intact, normal color, warm/dry Lymphatic: no anterior cervical ben Core Measures ACS in differential dx? No CVA/TIA Diagnosis: No Severe Sepsis Present: No Septic Shock Present: No Progress Differential Diagnoses I considered the following diagnoses in my evaluation of the patient: Toxic ingestion with esophagitis gastritis Plan of Care: Orders Procedure Date/time Status Regular Diet 02/18 L Active TROPONIN LEVEL 02/18 1432 Complete BASIC METABOLIC PANEL 02/18 1432 Complete URINALYSIS 02/18 1110 Active MAGNESIUM 02/18 1010 Complete COMPREHENSIVE METABOLIC PANEL 02/18 1010 Complete CBC WITHOUT DIFFERENTIAL 02/18 1010 Complete EKG 02/18 1010 Active Laboratory Tests 02/18/17 1434: Anion Gap 8, Estimated GFR 47 L, BUN/Creatinine Ratio 22.7, Glucose 93, Calcium 8.5, Troponin I < 0.01 02/18/17 1026: Anion Gap 15, Estimated GFR 32 L, BUN/Creatinine Ratio 18.1, Glucose 135 H, Calcium 9.3, Magnesium 1.8, Total Bilirubin 0.5, AST 21, ALT 24, Alkaline Phosphatase 60, Total Protein 6.8, Albumin 4.3, Globulin 2.5, Albumin/Globulin Ratio 1.7, CBC w Diff NO MAN DIFF REQ, RBC 3.90 L, MCV 92.8, MCH 30.4, RDW 13.4 , MPV 10.3, Gran % 82.9 H, Lymphocytes % 7.2 L, Monocytes % 9.6 H, Eosinophils % 0.2, Basophils % 0.1, Absolute Granulocytes 5.8, Absolute Lymphocytes 0.5 L, Absolute Monocytes 0.7 H, Absolute Eosinophils 0, Absolute Basophils 0, PUBS MCHC 32.8 L Initial ED EKG: normal axis, normal intervals, normal p-waves, normal QRS complex, normal sinus rhythm, peaked t waves c/w previous Comments: Improved BUN/Cr, K after hydration. No further complaints Departure Departure Time of Disposition: 1645 Disposition: HOME OR SELF CARE Condition: Stable Clinical Impression Primary Impression: Ingestion of toxic substance Secondary Impressions: Acute hyperkalemia, Renal insufficiency Referrals: CEE MOTT MD (PCP/Family) Additional Instructions: Drink plenty of clear liquids Departure Forms: Customer Survey General Discharge Information Critical Care Note Critical Care Note Critical Care Time: 30-74 min (40)
[2017-02-18 16:20] VITALS: BP 118/60
== END 2017-02-18 17:11 ==
LOC: ERH 09:30
PROVIDERS: Emergency Medicine
DX: T65.891A Toxic effect of other specified substances, accidental (unintentional), initial encounter (principal); E87.5 Hyperkalemia; N28.9 Disorder of kidney and ureter, unspecified
CPT/HCPCS: 81001; 93005; 93010; 96361; 96365; 96375; 99291; J0610; J2765